=== PATIENT | female | born 1965 | race Caucasian/White ===

== ENCOUNTER 2020-01-30 07:32 | Emergency (ER) | payer MEDICAID ==
[~2020-01-30] VITALS: Ht 152.4 cm; Wt 60.3 kg
--- NOTE | 2020-01-30 07:38 | NUR ---
PT IS IN ROOM #2A. DR KEATING EVALUATED THE PT.
[2020-01-30] MEDS ORDERED: IV NORMAL SALINE 1000 ML BAG IV ONE (07:45)
[2020-01-30] MEDS ORDERED: LORAZEPAM 0.5 MG TABLET PO ONE (07:45)
[2020-01-30] MEDS ORDERED: ONDANSETRON 4 MG/2 ML VIAL IV ONE (07:45)
[2020-01-30 07:56] LABS: BASOPHILS # (AUTO) 0.1 K/uL (0.0-8.0); BASOPHILS % (AUTO) 0.9 % (0.0-2.0); EOSINOPHILS # (AUTO) 0.1 K/uL (0.0-0.7); EOSINOPHILS % (AUTO) 1.3 % (0.0-7.0); HEMATOCRIT 40.1 % (31.2-41.9); HEMOGLOBIN 13.6 g/dL (10.9-14.3); LYMPHOCYTES # (AUTO) 4.4 K/uL (20.0-40.0); LYMPHOCYTES % (AUTO) 52.7 % (20.5-51.5); MEAN CORPUSCULAR HEMOGLOBIN 30.8 uug (24.7-32.8); MEAN CORPUSCULAR HGB CONC 34 g/dL (32.3-35.6); MEAN CORPUSCULAR VOLUME 90.8 fL (75.5-95.3); MONOCYTES # (AUTO) 0.5 K/uL (2.0-10.0); MONOCYTES % (AUTO) 5.7 % (0.0-11.0); NEUTROPHILS # (AUTO) 3.3 K/uL (1.8-8.9); NEUTROPHILS % (AUTO) 39.4 % (38.5-71.5); PLATELET COUNT (AUTO) 290 K/uL (179-408); RED BLOOD CELL COUNT(AUTO) 4.42 MIL/uL (3.63-4.92); WHITE BLOOD COUNT (AUTO) 8.3 K/uL (3.8-11.8)
[2020-01-30] MEDS ORDERED: ONDANSETRON 4 MG/2 ML VIAL ONE (08:02)
[2020-01-30] MEDS ORDERED: LORAZEPAM 0.5 MG TABLET ONE (08:02)
[2020-01-30 08:11] LABS: BILIRUBIN,DIRECT 0.1 mg/dL (0.0-0.2); BILIRUBIN,TOTAL 0.5 mg/dL (0.2-1.0); CREATININE 0.7 mg/dL (0.6-1.3); POTASSIUM 3.6 mmol/L (3.5-5.1)
[2020-01-30 08:19] LABS: *BILIRUBIN,URIN NEGATIVE (NEGATIVE); *BLOOD, URINE 1+ (NEGATIVE); *CLARITY,URINE CLEAR (CLEAR); *COLOR,URINE YELLOW (YELLOW); *KETONES,URINE 2+ (NEGATIVE); *UROBILINOGEN,URINE 0.2 E.U./dl (NORMAL); LEUKOCYTE ESTERASE ,URINE NEGATIVE (NEGATIVE); NITRITE, URINE NEGATIVE (NEGATIVE); UGLUCOSE NEGATIVE (NEGATIVE)
--- NOTE | 2020-01-30 09:15 | NUR ---
PT WAS D/C'd TO HOME. D/C INSTRUCTIONS GIVEN TO THE PT BY DR KEATING.
[2020-01-30 09:16] VITALS: BP 132/84
[2020-01-30 11:57] LABS: BACTERIA,URINE FEW /HPF (NONE SEEN); RBC,URINE 0-3 /HPF (0-3); SQUAMOUS EPITHELIAL CELL,UR FEW /HPF (NONE SEEN); WBC,URINE 0-3 /HPF (0-3)
== END 2020-01-30 09:17 | disposition home or self-care (01) ==
LOC: ER 07:34
DX: R11.0 Nausea (principal); F06.4 Anxiety disorder due to known physiological condition; R79.89 Other specified abnormal findings of blood chemistry; Z86.12 Personal history of poliomyelitis; R03.0 Elevated blood-pressure reading, without diagnosis of hypertension; Z20.828 Contact with and (suspected) exposure to other viral communicable diseases
CPT/HCPCS: 36415; 80048; 80076; 81001; 83690; 84484; 85025; 93005; 93308; 96361; 96374; 99285; J2405; U0003; 70030-TC; A4663; J7030

== ENCOUNTER 2021-10-19 12:23 | Emergency (ER) | payer MEDICAID ==
[~2021-10-19] VITALS: Ht 152.4 cm; Wt 68.0 kg
--- NOTE | 2021-10-19 12:40 | NUR ---
Dr Joy seen and examined the pt.
--- NOTE | 2021-10-19 12:56 | NUR ---
Verbal ACi given by Dr Joy. Patient discharged to home in stable condition. Patient verbalizes understanding of instructions. Stressed follow up or return to ER for worsening s/s. Pt left Er accompained by daughter.
[2021-10-19 13:08] VITALS: BP 118/66
== END 2021-10-19 13:08 | disposition home or self-care (01) ==
LOC: ER 12:28
DX: F41.9 Anxiety disorder, unspecified (principal); Z86.12 Personal history of poliomyelitis; M79.7 Fibromyalgia; Z28.310 Unvaccinated for COVID-19
CPT/HCPCS: A4663